=== PATIENT | male | born 1985 | race African-American/Black ===

== ENCOUNTER 2023-01-03 19:37 | Outpatient (CLI) | payer OTHER ==
--- NOTE | 2023-01-03 22:19 | XRAY Report ---
PROCEDURE: Ankle 3 View RT INDICATIONS: SPRAIN OF OTHER LIGAMENT OF RIGHT ANKLE TECHNIQUE: 3 views of the ankle were acquired. COMPARISON: None. FINDINGS: Bones: No acute fractures or dislocations. There is a corticated ossicle inferior to the lateral ma lleolus consistent with sequelae of a prior avulsion injury. Ankle mortise is normally aligned. No s uspicious bony lesions. Soft tissues: There is periarticular soft tissue swelling most prominent anterolaterally. No definit e tibiotalar joint effusion. IMPRESSION: 1. No definite acute fracture or dislocation. 2. Small corticated ossicle inferior to the lateral malleolus consistent with sequelae of a prior avu lsion injury. Reviewed by: Obinna Corbin MD on 01/03/2023 10:18 PM PST Approved by: Obinna Corbin MD on 01/03/2023 10:18 PM PST Station ID: [id number]
== END 2023-01-03 19:38 | disposition home or self-care (01) ==
LOC: DI 19:37
PROVIDERS: ATTEND Physician Assistant Medical
DX: S93.491A Sprain of other ligament of right ankle, initial encounter (principal)

== ENCOUNTER 2023-01-03 21:27 | Emergency (ER) | payer OTHER ==
[2023-01-03] MEDS ORDERED: KETOROLAC 60 MG/2 ML VIAL IM STA (21:49)
[2023-01-03] MEDS ORDERED: HYDROcod/ACETAM 5/325 MG TABLET PO STA (22:30)
--- NOTE | 2023-01-03 22:45 | ED Physician Documentation ---
PD HPI LOWER EXT INJURY - Stated complaint Stated Complaint: SWOLLEN ANKLE - Chief complaint Chief Complaint: Ext Problem - History obtained from History obtained from: Patient - History of Present Illness PD HPI LOW EXT INJURY LOCATION: Right, Ankle Type of injury: Twist Pain level max: 8 Pain level now: 8 Improved by: Rest, Ice Worsened by: Moving, Palpating Associated symptoms: Swelling. No: Weakness, Numbness, Tingling - Additional information Additional information: Patient is a 37-year-old male who presents to the emergency department after twisting his right ankle earlier today. He went to the walk-in clinic and had an x-ray performed. Unknown results. He is still having pain tonight so came in for evaluation. He was placed into a walking boot. Review of Systems Constitutional: denies: Fever, Chills Nose: denies: Rhinorrhea / runny nose Skin: denies: Rash Musculoskeletal: denies: Neck pain, Back pain Neurologic: denies: Headache, Head injury PD PAST MEDICAL HISTORY - Past Medical History Past Medical History: Yes Cardiovascular: Hypertension Respiratory: None Neuro: None Endocrine/Autoimmune: None GI: None : None HEENT: None Psych: Depression Musculoskeletal: None Derm: None - Past Surgical History Past Surgical History: No - Present Medications Home Medications: Ambulatory Orders Medication Instructions Recorded Confirmed Escitalopram [Lexapro] 5 mg PO DAILY 01/03/23 01/03/23 HYDROcod/ACETAM 5/325 [[place] 5/325] 1 - 2 ea PO Q6H PRN #14 tablet 01/03/23 Ibuprofen [Motrin] 800 mg PO Q8H PRN #30 tablet 01/03/23 Trazodone HCl 50 mg PO DAILY 01/03/23 01/03/23 amLODIPine [Norvasc] 2.5 mg PO DAILY 01/03/23 01/03/23 - Allergies Allergies/Adverse Reactions: Allergies Allergy/AdvReac Type Severity Reaction Status Date / Time No Known Drug Allergies Allergy Verified 01/03/23 21:41 - Social History Does the pt smoke?: Yes Smoking Status: Current every day smoker Does the pt drink ETOH?: No Does the pt have substance abuse?: No - Immunizations Immunizations are current?: Yes - POLST Patient has POLST: No PD ED PE NORMAL - Vitals Vital signs reviewed: Yes - General General: Alert and oriented X 3, No acute distress - HEENT HEENT: Atraumatic, Moist mucous membranes - Derm Derm: Warm and dry - Extremities Extremities: Other (R ankle - Tender to palpation over the lateral malleolus of the right ankle, soft tissue swelling present. Neurovascularly intact. Otherwise normal examination of the foot, ankle and lower leg) - Neuro Neuro: Alert and oriented X 3 Results - Vitals Vitals: Vital Signs - 24 hr 01/03/23 01/03/23 21:34 22:55 Temperature 37.2 C 37.2 C Heart Rate 74 79 Respiratory 17 16 Rate Blood Pressure 144/80 H 140/83 H O2 Saturation 100 98 Oxygen O2 Source Room air PD Medical Decision Making - ED course Complexity details: considered differential, d/w patient ED course: The right ankle x-ray from earlier was reviewed. I do not see any evidence of acute fracture or dislocation. The x-ray was read by radiology just prior to discharge and they do agree. Patient was placed in a gel splint, given crutches, we will prescribe pain medication as well. Neurovascular intact. Patient counseled regarding signs and symptoms for which I believe and urgent re-evaluation would be necessary. Patient with good understanding of and agreement to plan and is comfortable going home at this time This document was made in part using voice recognition software. While efforts are made to proofread this document, sound alike and grammatical errors may occur. Departure - Departure Disposition: 01 Home, Self Care Clinical Impression: Right ankle sprain Qualifiers: Encounter type: initial encounter Involved ligament of ankle: unspecified ligament Qualified Code(s): S93.401A - Sprain of unspecified ligament of right ankle, initial encounter Condition: Good Instructions: ED Sprain Ankle W X Ray Follow-Up: ALFRED MONTEIRO MD [Primary Care Provider] - Within 1 week Prescriptions: Ibuprofen [Motrin] 800 mg PO Q8H PRN #30 tablet PRN Reason: PAIN &/OR FEVER HYDROcod/ACETAM 5/325 [[place] 5/325] 1 - 2 ea PO Q6H PRN #14 tablet PRN Reason: Pain Comments: Please follow-up with your doctor for further care. There are no acute fractures or dislocation on your x-ray. You may bear weight as tolerated. We have placed you in a gel splint for comfort. Your prescriptions were sent to the [facility] pharmacy. If you are still having pain in 1 week, your doctor may consider repeat x-rays at that time. I am prescribing a short course of narcotic pain medication for you. These are potentially dangerous and addictive medications that should be used carefully. These medications may constipate you. Take an abkk-jql-zfplkkg stool softener (docusate) twice daily with plenty of water while taking these medications. If you go 24 hours without a bowel movement, take diyb-fkt-hrivabk miralax, per package instructions. Do not drink or drive while taking these medications. If you received narcotic or sedating medications while in the emergency department, do not drive for 24 hours. Store this medication in a safe, secure place and out of reach of children. It is a violation of federal law to give or sell this medication to another person or to use in a manner other than prescribed. The ED will not refill narcotic prescriptions, including prescriptions lost or stolen. To dispose of unwanted medications: 1. [facility] at [address] [facility] in [place] has a medication drop box. They accept prescription medications (in pill form) Saturday through Saturday 9:00 a.m. to 5:00 p.m. 2. The [facility] [employer] accepts prescription medications (in pill form only) for disposal year round. Call for more information. 3. Contact the [facility] for the next [facility] sponsored prescription drug collection event. , [phone], or [phone]; Discharge Date/Time: 01/03/23 22:55
[2023-01-03 22:56] VITALS: BP 140/83
== END 2023-01-03 22:55 | disposition home or self-care (01) ==
LOC: ED 21:27
DX: S93.401A Sprain of unspecified ligament of right ankle, initial encounter (principal); X50.1XXA Overexertion from prolonged static or awkward postures, initial encounter; I10 Essential (primary) hypertension; F17.200 Nicotine dependence, unspecified, uncomplicated
CPT/HCPCS: 96372; 99283; A9270

== ENCOUNTER 2023-11-04 11:15 | Outpatient (CLI) | payer OTHER | END 2023-11-04 11:30 | disposition home or self-care (01) | LOC: DI.N 11:15 | PROVIDERS: ATTEND Family Medicine | DX: Z53.9 Procedure and treatment not carried out, unspecified reason (principal) ==

== ENCOUNTER 2023-11-04 13:46 | Outpatient (CLI) | payer OTHER ==
--- NOTE | 2023-11-04 15:12 | XRAY Report ---
PROCEDURE: Lumbar Spine 2 View INDICATIONS: LUMBAR SPRAIN TECHNIQUE: 2 views of the lumbar spine were acquired. COMPARISON: None. FINDINGS: Bones: 5 [id number] vertebrae are present. There is normal bony alignment. No vertebral body compression fractures. No suspicious bony lesions. Soft tissues: Overlying bowel gas pattern is normal. No suspicious soft tissue calcifications. IMPRESSION: Unremarkable lumbar spine plain films. Reviewed by: David Heck MD on 11/04/2023 3:11 PM PST Approved by: David Heck MD on 11/04/2023 3:11 PM PST Station ID: [id number]
== END 2023-11-04 13:47 | disposition home or self-care (01) ==
LOC: DI 13:46
PROVIDERS: ATTEND Family Medicine
DX: S33.5XXA Sprain of ligaments of lumbar spine, initial encounter (principal)